=== PATIENT | male | born 1960 | race Hispanic/Latino ===

== ENCOUNTER 2017-12-16 15:34 | Emergency (ER) | payer SELFPAY ==
--- NOTE | 2017-12-16 15:54 | ED.PDOC ---
History of Present Illness - General Chief Complaint: General Stated Complaint: Low flank discomfort Time Seen by Provider: 12/16/17 15:54 Source: patient Exam Limitations: no limitations - History of Present Illness Initial Comments: Kris Hopson 57 y/o male stated that he had onset of intermittent left flank pain about 1100H today and getting more frequent not any better also felt nauseated .has regular bm,no diarrhea,dysuria or blood in urine or stool.Has history of DM2 on oral pills stated well contolled and quit his diabetic medications. Timing/Duration: 4-6 hours Severity: moderate Improving Factors: nothing Worsening Factors: nothing Associated Symptoms: other - see hpi Allergies/Adverse Reactions: Allergies NO KNOWN ALLERGY Allergy (Verified 12/16/17 15:48) Home Medications: Ambulatory Orders Lisinopril 10 mg PO DAILY #20 tab 12/16/17 Metformin HCl [Metformin HCl ER] 500 mg PO ACBK #20 tab 12/16/17 Review of Systems - Review of Systems Constitutional: States: no symptoms reported EENTM: States: no symptoms reported Respiratory: States: no symptoms reported Cardiology: States: no symptoms reported Gastrointestinal/Abdominal: States: see HPI, other - left flank pain Genitourinary: States: no symptoms reported Musculoskeletal: States: no symptoms reported Skin: States: no symptoms reported Neurological: States: no symptoms reported Past Medical History (General) - Patient Medical History Hx Diabetes: Yes Surgical History: no surgical history - Social History Hx Tobacco Use: No Hx Alcohol Use: Yes - Activities of Daily Living Patient Lives Alone: No Family Medical History - Family History Father Family History: No Known Living Status: Still Living Physical Exam - Physical Exam General Appearance: Alert, Comfortable, No apparent distress Eye Exam: bilateral normal Ears, Nose, Throat: hearing grossly normal, normal ENT inspection, normal pharynx Neck: non-tender, full range of motion, supple, normal inspection Respiratory: chest non-tender, lungs clear, normal breath sounds, no respiratory distress Cardiovascular/Chest: normal peripheral pulses, regular rate, rhythm, no murmur Gastrointestinal/Abdominal: normal bowel sounds, non tender, soft, no organomegaly, no pulsatile mass Back Exam: normal inspection, no CVA tenderness, no vertebral tenderness Extremity: non-tender, no pedal edema, no calf tenderness Neurologic: alert, oriented x 3 Skin Exam: normal color, warm/dry Progress - Progress Progress: 12/16/17 19:23 Vital Signs - 8 hr 12/16/17 12/16/17 12/16/17 15:40 16:26 17:00 Temperature 98.6 F Pulse Rate [ 70 91 H 72 Left Radial] Respiratory 18 16 18 Rate Blood Pressure 154/100 146/82 131/86 [Left Arm] O2 Sat by Pulse 96 99 95 Oximetry 12/16/17 18:00 Temperature Pulse Rate [ 74 Left Radial] Respiratory 18 Rate Blood Pressure 128/73 [Left Arm] O2 Sat by Pulse 96 Oximetry Left flank pain gradually subsiding;able to go to toilet no hematuria or dysuria - Results/Orders Results/Orders: Vital Signs - 8 hr 12/16/17 12/16/17 12/16/17 15:40 16:26 17:00 Temperature 98.6 F Pulse Rate [ 70 91 H 72 Left Radial] Respiratory 18 16 18 Rate Blood Pressure 154/100 146/82 131/86 [Left Arm] O2 Sat by Pulse 96 99 95 Oximetry 12/16/17 18:00 Temperature Pulse Rate [ 74 Left Radial] Respiratory 18 Rate Blood Pressure 128/73 [Left Arm] O2 Sat by Pulse 96 Oximetry 12/16/17 15:55 IV Care:Saline Lock per Protoc QSHIFT Laboratory Results - last 24 hr 12/16/17 12/16/17 12/16/17 16:17 17:44 18:04 WBC 11.9 H RBC 4.99 Hgb 15.0 Hct 44.2 MCV 88.5 MCH 30.0 MCHC 33.9 RDW 12.4 Plt Count 255 MPV 7.7 Absolute Neuts (auto) 10.00 H Absolute Lymphs (auto) 1.50 Absolute Monos (auto) 0.40 Absolute Eos (auto) 0.00 Absolute Basos (auto) 0.00 Neutrophils % 83.7 H Lymphocytes % 12.3 L Monocytes % 3.4 Eosinophils % 0.3 L Basophils % 0.3 PT 9.3 INR 0.93 PTT (SP) 25.6 D-Dimer, Quantitative 0.38 Sodium 137 Potassium 3.4 L Chloride 102 Carbon Dioxide 26 Anion Gap 12.4 BUN 19 H Creatinine 0.57 L BUN/Creatinine Ratio 33.3 H Random Glucose 186 H Serum Osmolality 280.9 Calcium 8.7 Magnesium 1.8 Total Bilirubin 0.4 Direct Bilirubin 0.1 Indirect Bilirubin 0.3 AST 27 ALT 33 Alkaline Phosphatase 75 Creatine Kinase 199 H CK-MB (CK-2) 3.1 CK-MB (CK-2) % Not Reportable Troponin I < 0.02 < 0.02 Serum Total Protein 7.4 Albumin 4.1 Lipase 28 Urine Color Urine Appearance Urine pH Ur Specific [place] Urine Protein Urine Glucose (UA) Urine Ketones Urine Blood Urine Nitrite Urine Bilirubin Urine Urobilinogen Ur Leukocyte Esterase Urine RBC Urine WBC Ur Epithelial Cells Urine Bacteria 12/16/17 18:08 WBC RBC Hgb Hct MCV MCH MCHC RDW Plt Count MPV Absolute Neuts (auto) Absolute Lymphs (auto) Absolute Monos (auto) Absolute Eos (auto) Absolute Basos (auto) Neutrophils % Lymphocytes % Monocytes % Eosinophils % Basophils % PT INR PTT (SP) D-Dimer, Quantitative Sodium Potassium Chloride Carbon Dioxide Anion Gap BUN Creatinine BUN/Creatinine Ratio Random Glucose Serum Osmolality Calcium Magnesium Total Bilirubin Direct Bilirubin Indirect Bilirubin AST ALT Alkaline Phosphatase Creatine Kinase CK-MB (CK-2) CK-MB (CK-2) % Troponin I Serum Total Protein Albumin Lipase Urine Color Yellow Urine Appearance Clear Urine pH 7.5 Ur Specific [place] 1.015 Urine Protein Negative Urine Glucose (UA) 250 H Urine Ketones 15 H Urine Blood Negative Urine Nitrite Negative Urine Bilirubin Negative Urine Urobilinogen 0.2 Ur Leukocyte Esterase Negative Urine RBC 0 Urine WBC 0 Ur Epithelial Cells 1-3 Urine Bacteria 0 Discuss all test result with patient with his elevated blood sugar that needs to be followed up as well as no acute findings CT Abd/p Departure - Departure Clinical Impression: Acute left flank pain Hyperglycemia due to type 2 diabetes mellitus Qualifiers: Diabetes mellitus nursing home insulin use: without nursing home use Qualified Code(s ): E11.65 - Type 2 diabetes mellitus with hyperglycemia Time of Disposition: 19:27 Disposition: Discharge to Home or Self Care Condition: Fair Departure Forms: ED Discharge - Pt. Copy, Patient Portal Self Enrollment Instructions: The ABCs of Diabetes, Hyperglycemia, Adult (DC), Hyperglycemia, Adult, DASH Diet Referrals: James Dash MD [Primary Care Provider] - 1-2 Weeks Prescriptions: Lisinopril 10 mg PO DAILY #20 tab Metformin HCl [Metformin HCl ER] 500 mg PO ACBK #20 tab Home Medications: Ambulatory Orders Lisinopril 10 mg PO DAILY #20 tab 12/16/17 Metformin HCl [Metformin HCl ER] 500 mg PO ACBK #20 tab 12/16/17 Additional Instructions: Need to follow up with primary Md 17 December 2017;Return to Emergency Room if symptoms worsens
[2017-12-16] MEDS: LACTATED RINGERS 1,000 ML IVS ONE (16:06)
[2017-12-16] MEDS: KETOROLAC TROMETHAMINE INJ 30 MG/ML VIAL IV ONE (16:06)
[2017-12-16] MEDS: MORPHINE SULFATE INJ 10 MG/ML VIAL IV ONE ×2 (16:10→19:09)
[2017-12-16 18:15] VITALS: O2SAT 96
--- NOTE | 2017-12-16 18:26 | CT ---
EXAM DESCRIPTION: Abdoment/Pelvis w/o Contrast CLINICAL HISTORY:57 years Male, left flank pain Comparison: None TECHNIQUE: Contiguous axial images of the abdomen and pelvis were obtained followed by reconstruction images. This exam was performed according to our departmental dose-optimization program, which includes automated exposure control, adjustment of the mA and/or kV according to patient size and/or use of iterative reconstruction technique. FINDINGS: Lung bases: Mild hypoventilatory changes in the lung bases. Heart: Visualized heart is within normal limits in size. Liver:Mildly enlarged. Diffuse low-attenuation throughout the liver consistent with hepatocellular disease/fatty infiltration. No focal liver lesion seen. Gallbladder:Unremarkable. No gallstones. No gallbladder wall thickening or pericholecystic fluid. Spleen:Unremarkable Pancreas: Pancreas is unremarkable. Adrenal glands:Within normal limits. Kidneys/ureters:Within normal limits Bladder:Unremarkable. Pelvic organs: No acute abnormality Vascular structures: within normal limits Peritoneum: No free fluid. Lymph nodes: No abnormal lymph nodes. Stomach/small bowel/colon: Stomach is unremarkable. Small bowel is unremarkable. Colonic diverticulosis without evidence of diverticulitis. Appendix: No evidence of appendicitis. Bones: No acute osseous abnormality. Soft tissues: Large right and small left fat-containing inguinal hernias.. IMPRESSION: No acute intra-abdominal abnormality. Electronically signed by: Maury Che DO 12/16/2017 6:25 PM CDT
[2017-12-16] MEDS: KETAMINE HCL 100 MG/ML VIAL IM ONE (19:23)
[2017-12-16] MEDS: HYDROCOD/APAP 10/325 (ER DISP) # 3 tablets PO ONE (19:30)
[2017-12-16 19:41] VITALS: BP 114/76; TEMP 98.7
== END 2017-12-16 19:42 | disposition home or self-care (01) ==
LOC: ER 15:34
DX: E11.65 Type 2 diabetes mellitus with hyperglycemia (principal); R10.32 Left lower quadrant pain; Z79.84 Long term (current) use of oral hypoglycemic drugs
CPT/HCPCS: 36415; 74176; 80048; 80076; 81001; 82550; 82553; 83690; 84484; 85025; 85379; 85610; 85730; J1885; J2270; J7120